=== PATIENT | female | born 1995 | race Hispanic/Latino ===

== ENCOUNTER 2018-10-12 18:27 | Emergency (ER) | payer MEDICAID | END 2018-10-12 19:07 | disposition home or self-care (01) | LOC: EDH 18:27 | DX: J03.80 Acute tonsillitis due to other specified organisms (principal); R50.9 Fever, unspecified; Z98.890 Other specified postprocedural states | CPT/HCPCS: 99281 ==

== ENCOUNTER 2018-11-25 18:03 | Emergency (ER) | payer MEDICAID, OTHER | END 2018-11-25 18:42 | disposition home or self-care (01) | LOC: EDH 18:03 | DX: J30.9 Allergic rhinitis, unspecified (principal); J03.90 Acute tonsillitis, unspecified; R09.82 Postnasal drip; Z98.890 Other specified postprocedural states ==

== ENCOUNTER 2019-01-13 06:20 | Emergency (ER) | payer OTHER | END 2019-01-13 08:37 | disposition home or self-care (01) | LOC: EDH 06:20 | DX: J39.8 Other specified diseases of upper respiratory tract (principal); Z98.890 Other specified postprocedural states | CPT/HCPCS: 87804 ==

== ENCOUNTER 2019-11-21 07:43 | Emergency (ER) | payer OTHER ==
[2019-11-21] MEDS ORDERED: ACETAMINOPHEN 325 MG TAB ONE (07:59)
[2019-11-21] MEDS ORDERED: ONDANSETRON ODT 4 MG TAB ONE (08:00)
[2019-11-21 08:33] LABS: RAPID GROUP A STREP NEGATIVE (NEGATIVE)
== END 2019-11-21 09:03 | disposition home or self-care (01) ==
LOC: EDH 07:43
DX: J02.8 Acute pharyngitis due to other specified organisms (principal); R11.0 Nausea; R51 Headache; Z93.3 Colostomy status; Z98.890 Other specified postprocedural states
CPT/HCPCS: 87804; 87880

== ENCOUNTER 2020-04-30 12:50 | Emergency (ER) | payer OTHER | END 2020-04-30 14:01 | disposition home or self-care (01) | LOC: EDH 12:50 | DX: N89.8 Other specified noninflammatory disorders of vagina (principal); Z98.890 Other specified postprocedural states | CPT/HCPCS: 99281 ==